=== PATIENT | female | born 2005 | race Caucasian/White ===

== ENCOUNTER 2024-06-08 20:31 | Emergency (ER) | payer OTHER ==
[~2024-06-08] VITALS: Ht 160 cm; Wt 54.5 kg
[2024-06-08 21:00] VITALS: BP 116/84; TEMP 100
[2024-06-08] MEDS ORDERED: dexAMETHasone 10 MG/ML VIAL IV ONE (23:45)
[2024-06-08] MEDS ORDERED: Ketorolac 15 MG/ML VIAL IV ONE (23:45)
[2024-06-08] MEDS ORDERED: NS 1,000 ML IV ONE (23:45)
[2024-06-09 00:20] LABS: BASO % 0.3 % (0.0-2.0); EOS % 0.3 % (0.0-4.0); GRAN # 9.2 K/mm3 (1.4-6.5); GRAN % 76.8 % (42.2-75.2); HEMATOCRIT 37.4 % (35.0-45.0); HEMOGLOBIN 12.6 g/dl (12.0-15.0); LYMPH # 1.7 K/mm3 (1.2-3.4); LYMPH % 14.1 % (20.0-51.0); MEAN CELL VOLUME 91 fl (80.0-95.0); MEAN CORPUSCULAR HEMOGLOBIN 31 pg (26-32); MEAN CORPUSCULAR HGB CONC 34 g/dl (33.0-37.0); MEAN PLATELET VOLUME 10.2 fl (7.4-10.4); MONO % 8.3 % (1.7-9.3); PLATELET COUNT 189 K/mm3 (130-400); RED BLOOD COUNT 4.12 M/mm3 (4.10-5.30); REDCELL DISTRIBUTION WIDTH-CV 12.2 % (11.5-14.5)
[2024-06-09 00:39] LABS: ALBUMIN 3.9 g/dL (3.5-5.0); BILIRUBIN,TOTAL 0.8 mg/dL (0.2-1.2); CALCIUM 10.2 mg/dL (8.4-10.2); CREATININE, serum 0.83 mg/dL (0.57-1.11); POTASSIUM 3.8 mEq/L (3.5-4.5)
[2024-06-09] MEDS ORDERED: CLEOCIN HCL300 MG PO (01:03)
[2024-06-09 01:15] VITALS: PULSE 92
== END 2024-06-09 01:15 | disposition home or self-care (01) ==
LOC: COL.ER 20:31
PROVIDERS: Physician Assistant
DX: J36 Peritonsillar abscess (principal)
CPT/HCPCS: J0737; J1100; J1885; J7030